=== PATIENT | female | born 1955 | race Caucasian/White ===

== ENCOUNTER → 2024-06-28 10:47 | Outpatient (REF) | payer BC, SELFPAY | LOC: WDC 10:47 | PROVIDERS: ATTENDING PHYSICIAN Family Medicine | DX: Z12.31 Encounter for screening mammogram for malignant neoplasm of breast (principal) | CPT/HCPCS: 77063; 77067 ==

== ENCOUNTER → 2025-01-14 07:49 | Outpatient (REF) | payer BC, SELFPAY | LOC: RAD 07:49 | PROVIDERS: ATTENDING PHYSICIAN Internal Medicine | DX: Z13.820 Encounter for screening for osteoporosis (principal) | CPT/HCPCS: 77080 ==